=== PATIENT | female | born 1985 | race African-American/Black ===

== ENCOUNTER 2016-05-15 14:04 | Inpatient (IN) | payer MEDICAID ==
[~2016-05-15] VITALS: Ht 162.6 cm; Wt 60.3 kg
[2016-05-15 15:58] LABS: HCG SCREEN POSITIVE
[2016-05-15 16:27] LABS: CLARITY URINE CLEAR (CLEAR); COLOR URINE YELLOW (YELLOW); GLUCOSE URINE NEGATIVE (NEGATIVE); KETONES URINE 1+ (NEGATIVE); LEUKOCYTE ESTERASE URINE NEGATIVE (NEGATIVE); NITRITE URINE NEGATIVE (NEGATIVE); OCCULT BLOOD URINE 3+ (NEGATIVE); PH URINE 5.5 (4.5-8.0); PROTEIN URINE NEGATIVE (NEGATIVE); SPECIFIC GRAVITY URINE 1.026 (1.005-1.030)
[2016-05-15 16:45] LABS: SQUAMOUS EPITHELIAL CELL URINE 1+ /lpf (RARE/1+)
[2016-05-15 16:46] LABS: BACTERIA URINE 2+; MUCUS URINE 2+ /lpf (< = 2+)
[2016-05-15] MEDS ORDERED: SODIUM CHLORIDE 0.9% 1,000 ML IV ONE (18:04)
[2016-05-15 18:39] LABS: CHLORIDE 106 mEq/L (98-107); INDEX HEMOLYSI 2 (1-3); INDEX ICTERIC 1 (1-4); INDEX LIPEMIC 1 (1-3)
[2016-05-15 18:44] LABS: CALCIUM 8.7 mg/dL (8.5-10.1)
[2016-05-15 18:47] LABS: ANION GAP 16; CARBON DIOXIDE 21 mEq/L (21-32); UREA NITROGEN BLOOD 5 mg/dL (7-21); eGFR > 60 mL/min (>60)
[2016-05-15 19:03] LABS: INR 1.1; PROTHROMBIN TIME 11.6 sec
[2016-05-15 19:11] LABS: BASOPHILS % 0.9 % (0.0-2.0); EOSINOPHILS % 1.1 % (0.0-5.0); HEMOGLOBIN. 12.6 g/dL (12.0-16.0); MEAN CORPUSCULAR HEMOGLOBIN 31.3 pg (28.0-32.0); MEAN CORPUSCULAR HGB CONC 33.2 g/dL (31.0-37.0); MEAN CORPUSCULAR VOLUME 94.2 fL (81.0-99.0); MEAN PLATELET VOLUME 9.7 fl (7.4-10.4); PLATELET 275 x1000/uL (130-400); RED BLOOD CELL COUNT 4.04 mill/uL (4.2-5.4); RED CELL DISTRIBUTION WIDTH 12.8 % (11.6-14.6); WHITE BLOOD COUNT 7.4 x1000/uL (4.5-11.0)
[2016-05-15] MEDS ORDERED: PROPOFOL 200MG/20ML VIAL IV ONE (19:59)
[2016-05-15] MEDS ORDERED: FENTANYL CITRATE/PF 50MCG/ML 2ML VIAL ONE ×2 (19:59→20:45)
[2016-05-15] MEDS ORDERED: ONDANSETRON HCL 4MG/2ML VIAL ONE (20:13)
[2016-05-15] MEDS ORDERED: DEXAMETHASONE 4MG/ML 1ML VIAL ONE (20:13)
[2016-05-15] MEDS ORDERED: METOCLOPRAMIDE HCL 10MG/2ML VIAL ONE (20:13)
[2016-05-15] MEDS ORDERED: CEFAZOLIN SODIUM 1000MG/VIAL ONE (20:16)
[2016-05-15] MEDS ORDERED: ESMOLOL HCL 10MG/ML 10ML VIAL IV ONE ×2 (20:23→21:10)
[2016-05-15] MEDS ORDERED: VASOPRESSIN 20 UNIT/ML 1ML ONE (20:28)
[2016-05-15] MEDS ORDERED: ROCURONIUM BROMIDE 10MG/ML VIAL 5ML IV ONE (20:44)
[2016-05-15] MEDS ORDERED: KETOROLAC 60MG/2ML VIAL IM ONE (20:48)
[2016-05-15] MEDS ORDERED: DIPHENHYDRAMINE 25MG CAPSULE PO PRN (21:00)
[2016-05-15] MEDS ORDERED: IBUPROFEN 400MG TABLET PO PRN (21:00)
[2016-05-15] MEDS ORDERED: HYDROCODONE/ACETAMINOPHEN 5/325MG TABLET PO PRN (21:00)
[2016-05-15] MEDS ORDERED: TETANUS, DIPHTHERIA, PERTUSSIS VAC/PF 0.5ML (>7YR OLD) IM ONE (21:00)
[2016-05-15] MEDS ORDERED: NEOSTIGMINE METHYLSULFATE 1MG/ML 10 ML VIAL ONE (21:06)
[2016-05-15] MEDS ORDERED: GLYCOPYRROLATE 0.2 MG/ML 2ML VIAL ONE (21:08)
[2016-05-15] MEDS ORDERED: ONDANSETRON HCL 4MG/2ML VIAL IV PRN (21:30)
[2016-05-15] MEDS ORDERED: SODIUM CHLORIDE 0.9% 1,000 ML IV SCH (21:35)
[2016-05-15] MEDS ORDERED: RHO(D) IMMUNE GLOBULIN 300 MCG/SYR IM PRN (21:37)
[2016-05-15] MEDS: HYDROMORPHONE HCL/PF 2MG/ML CPJ IV PRN ×5 (21:53→22:22)
[2016-05-15] MEDS ORDERED: LORAZEPAM 2MG/ML CPJ IV STA (22:27)
[2016-05-15] MEDS ORDERED: HYDROMORPHONE HCL/PF 2MG/ML CPJ IV PRN (22:30)
[2016-05-15 23:30] VITALS: BP 109/85
[2016-05-16] MEDS: HYDROCODONE/ACETAMINOPHEN 5/325MG TABLET PO PRN ×2 (00:04→08:57)
[2016-05-16 04:00] VITALS: BP 108/68
[2016-05-16] MEDS: DEXT 5%/LACTATED RINGERS 1,000 ML IV SCH ×3 (05:36→21:17)
[2016-05-16] MEDS: KETOROLAC 30MG/ML VIAL IV SCH ×3 (05:37→21:16)
[2016-05-16] MEDS ORDERED: INFLUENZA VIRUS VACCINE 0.5ML SYR IM ONE (06:00)
[2016-05-16 07:03] LABS: HEMATOCRIT. 33.8 % (36.0-48.0); HEMOGLOBIN. 11.3 g/dL (12.0-16.0); MEAN CORPUSCULAR HGB CONC 33.3 g/dL (31.0-37.0); MEAN CORPUSCULAR VOLUME 93.1 fL (81.0-99.0); MEAN PLATELET VOLUME 9.6 fl (7.4-10.4); PLATELET 249 x1000/uL (130-400); RED BLOOD CELL COUNT 3.63 mill/uL (4.2-5.4); RED CELL DISTRIBUTION WIDTH 12.6 % (11.6-14.6); WHITE BLOOD COUNT 12.8 x1000/uL (4.5-11.0)
[2016-05-16 07:52] LABS: DIFFERENTIAL COMMENT 1
[2016-05-16 08:00] VITALS: BP 100/66
[2016-05-16] MEDS: SIMETHICONE 80MG TABLET CHEW PO SCH ×4 (08:58→21:15)
[2016-05-16] MEDS: DOCUSATE SODIUM 100MG CAPSULE PO SCH ×2 (08:58→21:15)
[2016-05-16] MEDS ORDERED: TETANUS, DIPHTHERIA, PERTUSSIS VAC/PF 0.5ML (>7YR OLD) IM ONE (10:00)
[2016-05-16 11:47] VITALS: BP 101/71
[2016-05-16] MEDS: PRENATAL VIT/FE FUMARATE/FA TABLET PO SCH (12:55)
[2016-05-16] MEDS: ONDANSETRON HCL 4MG/2ML VIAL IV PRN ×2 (13:09→19:20)
[2016-05-16 14:58] LABS: PLATELET ESTIMATE NORMAL
[2016-05-16 16:00] VITALS: BP 113/79
[2016-05-16 20:00] VITALS: BP 115/71
[2016-05-17] VITALS: BP 107/66
[2016-05-17 04:00] VITALS: BP 118/78
[2016-05-17] MEDS: HYDROCODONE/ACETAMINOPHEN 5/325MG TABLET PO PRN ×3 (04:29→15:49)
[2016-05-17 07:49] VITALS: BP 103/69
[2016-05-17] MEDS: SIMETHICONE 80MG TABLET CHEW PO SCH ×2 (10:42→13:20)
[2016-05-17] MEDS: PRENATAL VIT/FE FUMARATE/FA TABLET PO SCH (10:42)
[2016-05-17 12:00] VITALS: BP 96/59
[2016-05-17] MEDS: ONDANSETRON HCL 4MG/2ML VIAL IV PRN (13:20)
[2016-05-17 16:00] VITALS: BP 104/70
[2016-05-17 16:20] VITALS: BP 96/59
[2016-05-17] MEDS ORDERED: DIPHENHYDRAMINE 25MG CAPSULE PO SCH (21:00)
== END 2016-05-17 17:30 | disposition home or self-care (01) | DRG 545 ==
LOC: ER 14:05 → 8WST 18:05
PROVIDERS: ADMIT Specialist; ATTEND Specialist
PROC: 0UQ00ZZ Repair Right Ovary, Open Approach (ICD-10-PCS; 2016-05-15)
PROC: 0U950ZZ Drainage of Right Fallopian Tube, Open Approach (ICD-10-PCS; 2016-05-15)
PROC: 0UB00ZZ Excision of Right Ovary, Open Approach (ICD-10-PCS; 2016-05-15)
PROC: 0UC50ZZ Extirpation of Matter from Right Fallopian Tube, Open Approach (ICD-10-PCS; principal; 2016-05-15 19:00)
DX: O00.10 Tubal pregnancy without intrauterine pregnancy (principal); O08.0 Genital tract and pelvic infection following ectopic and molar pregnancy; O08.1 Delayed or excessive hemorrhage following ectopic and molar pregnancy; F17.200 Nicotine dependence, unspecified, uncomplicated; J45.909 Unspecified asthma, uncomplicated; Z22.4 Carrier of infections with a predominantly sexual mode of transmission; O34.81 Maternal care for other abnormalities of pelvic organs, first trimester; N83.201 Unspecified ovarian cyst, right side
CPT/HCPCS: 36415; 80048; 81001; 84702; 84703; 85025; 85610; 85730; 86850; 86900; 87070; 87075; 87205; 88304; 88305; 90715; 96374; 96375; 96376; 99285; J0690; J1100; J1170; J1885; J2060; J2405; J2704; J2710; J2765; J3010; J3490; J7030